=== PATIENT | female | born 1960 | race Caucasian/White ===

== ENCOUNTER → 2017-12-15 21:59 | Outpatient (CLI) | payer OTHER | END | disposition home or self-care (01) | LOC: D.MAMMO 16:00 | DX: Z12.31 Encounter for screening mammogram for malignant neoplasm of breast (principal) ==

== ENCOUNTER 2018-01-04 08:00 | Outpatient (CLI) | payer OTHER | END 2018-01-04 13:14 | disposition home or self-care (01) | LOC: D.MAMMO 08:00 | DX: R92.8 Other abnormal and inconclusive findings on diagnostic imaging of breast (principal) ==

== ENCOUNTER 2019-06-08 12:11 | Emergency (ER) | payer OTHER ==
[~2019-06-08] VITALS: Ht 157.5 cm; Wt 59.1 kg
[2019-06-08 12:42] VITALS: Ht 157.5 cm; Wt 59.1 kg
[2019-06-08] MEDS ORDERED: ESTRACE 0.5 MG0.5 MG PO (12:44)
[2019-06-08] MEDS ORDERED: PROVERA2.5 MG PO (12:45)
[2019-06-08] MEDS ORDERED: BUTALB-APAP-CA1 EACH PO (17:34)
[2019-06-08 17:56] VITALS: BP 114/59
== END 2019-06-08 17:56 | disposition home or self-care (01) ==
LOC: D.ER 12:11
DX: R51 Headache (principal); V49.40XA Driver injured in collision with unspecified motor vehicles in traffic accident, initial encounter; Y93.9 Activity, unspecified; Y92.9 Unspecified place or not applicable; M54.2 Cervicalgia

== ENCOUNTER → 2020-10-30 07:06 | Outpatient (CLI) | payer BC ==
[2019-06-08 12:42] VITALS: BMI 23.8
[~2020-10-30 07:06] MED LIST: BUTALB-APAP-CA1 EACH PO; ESTRACE 0.5 MG0.5 MG PO; PROVERA2.5 MG PO
== END | disposition home or self-care (01) ==
LOC: D.US 07:06
PROVIDERS: ATTEND Family Medicine
DX: R10.30 Lower abdominal pain, unspecified (principal)

== ENCOUNTER → 2020-11-26 08:17 | Outpatient (CLI) | payer BC ==
[2019-06-08 12:42] VITALS: BMI 23.8
== END | disposition home or self-care (01) ==
LOC: D.CT 08:17
PROVIDERS: ATTEND Family Medicine
DX: N20.0 Calculus of kidney (principal)